=== PATIENT | male | born 1970 | race Caucasian/White ===

== ENCOUNTER 2022-08-13 15:00 | Observation (INO) ==
[2022-08-13] MEDS ORDERED: NS 1,000 ML IV 1,000 ML with MVI INJ (ADULT) 10 ML IV ONE ×2 (16:00)
[2022-08-13] MEDS ORDERED: ZOFRAN INJ 4 MG VIAL IVP PRN (16:00)
[2022-08-13 16:22] LABS: BASOPHILS # (AUTO) 0.1 X10^3/uL (0.0-0.1); BASOPHILS % (AUTO) 0.8 % (0.2-1.0); EOSINOPHILS # (AUTO) 0.1 x10^3/uL (0.0-0.2); EOSINOPHILS % (AUTO) 1.3 % (0.9-2.9); HEMATOCRIT 54.9 % (42.0-54.0); HEMOGLOBIN 18.9 g/dL (13.5-18.0); LYMPHOCYTES # (AUTO) 1.3 X10^3/uL (1.3-2.9); LYMPHOCYTES % (AUTO) 14.8 % (21.0-51.0); MEAN CORPUSCULAR HEMOGLOBIN 31.4 pg (27.0-34.0); MEAN CORPUSCULAR HGB CONC 34.5 g/dL (33.0-35.0); MEAN CORPUSCULAR VOLUME 91.1 fL (80.0-100.0); MEAN PLATELET VOLUME 11.3 fL (7.4-11.0); MONOCYTES % (AUTO) 11.7 % (0.0-13.0); NEUTROPHILS # (AUTO) 6.4 x10^3/uL (2.2-4.8); NEUTROPHILS % (AUTO) 71.4 % (42.0-75.0); PLATELET COUNT 164 X10^3/uL (150.0-450.0); RED BLOOD COUNT 6.02 X10^6/uL (4.7-6.0); RED CELL DISTRIBUTION WIDTH 13.3 % (11.6-16.5); WHITE BLOOD COUNT 8.9 X10^3/uL (3.6-10.0)
[2022-08-13 16:33] LABS: ALANINE AMINOTRANSFERASE 34 Units/L (12-78); ALKALINE PHOSPHATASE 73 Units/L (46-116); AMYLASE 47 Units/L (25-115); ASPARTATE AMINO TRANSFERASE 13 Units/L (15-37); BLOOD UREA NITROGEN 20 mg/dL (7-18); CALCIUM 9.2 mg/dL (8.5-10.1); CARBON DIOXIDE 31.3 mmol/L (21-32); CHLORIDE 93 mmol/L (98-107); CREATININE 1.15 mg/dL (0.70-1.30); GLUCOSE 99 mg/dL (65-99); LIPASE 186 Units/L (73-393); POTASSIUM 3.8 mmol/L (3.5-5.1); SODIUM 135 mmol/L (136-145); TOTAL PROTEIN 7.9 g/dL (6.4-8.2); eGFR NON BLACK RACES > 60 (>60)
[2022-08-13 18:14] VITALS: BMI 27.3
[2022-08-13] MEDS: NS 1,000 ML IV 1,000 ML IV SCH (18:25)
[2022-08-13 18:30] LABS: BILIRUBIN,URINE NEGATIVE (NEGATIVE); BLOOD/HEMOGLOBIN,URINE 3+ (NEGATIVE); GLUCOSE, URINE NEGATIVE (NEGATIVE); KETONES,URINE 2+ (NEGATIVE); LEUKOCYTE ESTERASE ,URINE NEGATIVE (NEGATIVE); NITRITES,URINE NEGATIVE (NEGATIVE); PROTEIN,URINE 2+ (NEGATIVE); UROBILINOGEN,URINE NORMAL (NORMAL)
[2022-08-13 18:53] LABS: APPEARANCE,URINE CLEAR (CLEAR); BACTERIA,URINE TRACE /HPF (NEGATIVE); COLOR,URINE DARK YELLOW (YELLOW); SQUAMOUS EPITHELIAL CELL,UR FEW /HPF (NEGATIVE)
[2022-08-13] MEDS ORDERED: LEVSIN/MAALOX/LIDOC VISC PO PRN (19:48)
[2022-08-13] MEDS: PEPCID 20 MG VIAL IVP SCH (20:42)
[2022-08-13] MEDS: PROTONIX INJ 40 MG VIAL IVP SCH (20:42)
--- NOTE | 2022-08-14 00:46 | RAD ---
HISTORYABDOMINAL PAINSTUDYKUBCOMPARISONNoneTECH NIQUEAP supine projection, 1 imageFINDINGSMultiple moderately distended small bowel loops throughout the majority of the abdomen.No gross free air.No abnormal calcifications.No acute osseous abnormality.IMPRESSIONMultiple moderately distended small bowel loops throughout the majority of the abdomen. Findings are highly concerning for a mechanical small bowel obstruction.Electronically signed by: Kemar Abarca (August 14, 2022 00:45:18)
[2022-08-14] MEDS: NS 1,000 ML IV 1,000 ML IV SCH ×2 (04:48→19:55)
[2022-08-14 06:08] LABS: BASOPHILS # (AUTO) 0.1 X10^3/uL (0.0-0.1); BASOPHILS % (AUTO) 1.4 % (0.2-1.0); EOSINOPHILS # (AUTO) 0.1 x10^3/uL (0.0-0.2); EOSINOPHILS % (AUTO) 2.2 % (0.9-2.9); HEMATOCRIT 50.5 % (42.0-54.0); HEMOGLOBIN 17.4 g/dL (13.5-18.0); LYMPHOCYTES # (AUTO) 1.4 X10^3/uL (1.3-2.9); MEAN CORPUSCULAR HEMOGLOBIN 31.3 pg (27.0-34.0); MEAN CORPUSCULAR HGB CONC 34.4 g/dL (33.0-35.0); MEAN CORPUSCULAR VOLUME 90.8 fL (80.0-100.0); MEAN PLATELET VOLUME 11.2 fL (7.4-11.0); MONOCYTES # (AUTO) 0.8 x10^3/uL (0.3-0.8); MONOCYTES % (AUTO) 11.8 % (0.0-13.0); NEUTROPHILS # (AUTO) 4.2 x10^3/uL (2.2-4.8); NEUTROPHILS % (AUTO) 63.6 % (42.0-75.0); PLATELET COUNT 153 X10^3/uL (150.0-450.0); RED BLOOD COUNT 5.56 X10^6/uL (4.7-6.0); RED CELL DISTRIBUTION WIDTH 13.1 % (11.6-16.5); WHITE BLOOD COUNT 6.6 X10^3/uL (3.6-10.0)
[2022-08-14 06:13] LABS: ALANINE AMINOTRANSFERASE 27 Units/L (12-78); ALBUMIN 3.4 g/dL (3.4-5.0); ALKALINE PHOSPHATASE 66 Units/L (46-116); ASPARTATE AMINO TRANSFERASE 11 Units/L (15-37); BLOOD UREA NITROGEN 17 mg/dL (7-18); CALCIUM 8.3 mg/dL (8.5-10.1); CARBON DIOXIDE 31.3 mmol/L (21-32); CHLORIDE 96 mmol/L (98-107); GLUCOSE 93 mg/dL (65-99); SODIUM 135 mmol/L (136-145); TOTAL PROTEIN 6.8 g/dL (6.4-8.2); eGFR NON BLACK RACES > 60 (>60)
[2022-08-14] MEDS ORDERED: NS 50 ML IV 50 ML IV ONE (09:21)
[2022-08-14] MEDS: PROTONIX INJ 40 MG VIAL IVP SCH ×2 (09:30→21:09)
[2022-08-14] MEDS: PEPCID 20 MG VIAL 20 MG in NS 50 ML IV 50 ML IV SCH ×2 (09:31→21:10)
[2022-08-14] MEDS ORDERED: FORTAZ or TAZICEF VIAL INJ 1 G in NS 100 ML IV + SPIKE MINIBAG* 100 ML IV SCH (10:00)
[2022-08-14] MEDS: FORTAZ or TAZICEF VIAL INJ 1 G in NS 100 ML IV 100 ML IV SCH ×3 (10:20→21:09)
[2022-08-14] MEDS: LEVAQUIN PREMIX IV 750 MG 750 MG/150 ML BAG IV SCH (12:13)
--- NOTE | 2022-08-14 14:41 | CT ---
HISTORYABD PAIN, NAUSEA VOMITINGSTUDYABDOMEN/PELVIS WITH CONCOMPARISONKUB dated 08/13/2022.TECHNIQUEMultiple axial images of the abdomen and pelvis were obtained from the lung bases to the pubic symphysis after the administration of IV contrast. Dose reduction techniques including Automated Exposure Control (AEC) and adjustment of mA and kV were utilized.FINDINGSIncluded portions of the lung bases are clear. There is a 5 mm hypodensity in the right hepatic lobe, possibly a cyst. No enhancing intrahepatic mass lesion or biliary ductal dilatation is evident. The gallbladder, pancreas, spleen, adrenal glands and kidneys are unremarkable in their CT appearance. The urinary bladder is well distended and grossly unremarkable. The prostate is normal in size. The appendix is normal. The colon is nondistended and not optimally evaluated. There are a couple of uncomplicated colonic diverticuli noted. There are multiple dilated loops of small bowel throughout the abdomen with both proximal and distal small bowel loops appearing more normal in caliber. There is no bowel wall thickening or pneumatosis evident. There is no significant mesenteric stranding or lymphadenopathy. There is no intraperitoneal free air or free fluid. The abdominal aorta is non aneurysmal. The bony structures are grossly intact. There is degenerative disc disease at L5-S1.IMPRESSIONMultiple dilated loops of small bowel concerning for possible small bowel obstruction. There is no pneumatosis or CT evidence of bowel ischemia at this time. Correlation with lactic acid levels and close clinical follow-up is recommended to exclude bowel ischemia. Follow-up KUB may be of benefit in evaluating for passage of contrast into the colon.Electronically signed by: BIBIANA SWAIN (August 14, 2022 14:40:08)
--- NOTE | 2022-08-14 17:40 | DR.UPDATE ---
H&P Update Prescription drug monitoring program results: PDMP reviewed and no concerns identified H&P Reviewed: Yes Any changes to H&P?: Yes Changes noted:: WAS ADMITTED TO THE HOSPITAL OBSERVATION STATUS FOR FURTHER EVALUATION AND TREATMENT OF ABDOMINAL PAIN, NAUSEA AND VOMITING, AND DEHYDRATION. HE DESCRIBES ABDOMINAL PAIN DIFFUSE, CRAMPING, AND RATES PAIN A 7/10. ON ADMISSION TO THE HOSPITAL, HIS VITALS WERE: 97.9-78-20-98%-141/84. LABS WERE OBTAINED. WBC 8.9, RBC 6.02, HGB 18.9, HCT 54.9, PLT COUNT 164, SODIUM 135, POTASSIUM 3.8, CHLORIDE 93, BUN 20, CREATININE 1.15, GLUCOSE 99, CALCIUM 9.2, TOTAL BILI 0.90, AST 13, ALT 34, ALK PHOS 73, TOTAL PROTEIN 7.9, ALBUMIN 4.0, AMYLASE 47, ALBUMIN 186. A URINALYSIS WAS OBTAINED AND REVEALED: WBC 0-2, RBC 10-20, BACTERIA TRACE, LEUKOCYTES NEGATIVE, BLOOD 3+. A URINE CULTURE WAS SET UP. A KUB WAS OBTAINED AND REVEALED: Multiple moderately distended small bowel loops throughout the majority of the abdomen. Findings are highly concerning for a mechanical small bowel obstruction. HE WAS STARTED ON NORMAL SALINE AT 125 ML/HR, PEPCID 20MG IV Q12H, PROTONIX 40MG IV Q12H, ZOFRAN 4MG IV Q4H PRN, ZOFRAN 4MG IV Q4H PRN, AND TORADOL 30MG IV Q8H. WE WILL HOLD HIM NPO AND OBTAIN AN ABDOMEN/PELVIS CT WITH CONTRAST IN THE MORNING. WE WILL ALSO REPEAT LABS IN THE [facility]. TIME SPENT ON CLINICAL ASSESSMENT, REVIEWING LABS AND IMAGING, DECISION MAKING, AND DOCUMENTATION GREATER THAN 75 MINUTES. Patient was examined?: Yes
[2022-08-14] MEDS: PEPCID 20 MG VIAL IVP SCH (19:14)
[2022-08-14] MEDS: TORADOL 30 MG VIAL IVP SCH (21:10)
[2022-08-15] MEDS: NS 1,000 ML IV 1,000 ML IV SCH ×4 (02:00→18:52)
[2022-08-15] MEDS: TORADOL 30 MG VIAL IVP SCH ×3 (02:02→17:54)
[2022-08-15] MEDS ORDERED: TORADOL 30 MG VIAL IVP PRN (03:55)
[2022-08-15] MEDS: FORTAZ or TAZICEF VIAL INJ 1 G in NS 100 ML IV 100 ML IV SCH (05:47)
[2022-08-15 06:05] LABS: BASOPHILS % (AUTO) 0.3 % (0.2-1.0); EOSINOPHILS % (AUTO) 0.8 % (0.9-2.9); HEMATOCRIT 47.3 % (42.0-54.0); HEMOGLOBIN 16.5 g/dL (13.5-18.0); LYMPHOCYTES # (AUTO) 0.7 X10^3/uL (1.3-2.9); LYMPHOCYTES % (AUTO) 14.6 % (21.0-51.0); MEAN CORPUSCULAR HEMOGLOBIN 31.6 pg (27.0-34.0); MEAN CORPUSCULAR HGB CONC 34.8 g/dL (33.0-35.0); MEAN CORPUSCULAR VOLUME 90.7 fL (80.0-100.0); MEAN PLATELET VOLUME 10.7 fL (7.4-11.0); MONOCYTES # (AUTO) 0.7 x10^3/uL (0.3-0.8); MONOCYTES % (AUTO) 14.8 % (0.0-13.0); NEUTROPHILS # (AUTO) 3.4 x10^3/uL (2.2-4.8); NEUTROPHILS % (AUTO) 69.5 % (42.0-75.0); PLATELET COUNT 125 X10^3/uL (150.0-450.0); RED BLOOD COUNT 5.21 X10^6/uL (4.7-6.0); RED CELL DISTRIBUTION WIDTH 12.6 % (11.6-16.5); WHITE BLOOD COUNT 4.9 X10^3/uL (3.6-10.0)
[2022-08-15 06:18] LABS: ALANINE AMINOTRANSFERASE 21 Units/L (12-78); ALBUMIN 3.1 g/dL (3.4-5.0); ALKALINE PHOSPHATASE 69 Units/L (46-116); ASPARTATE AMINO TRANSFERASE 11 Units/L (15-37); BLOOD UREA NITROGEN 19 mg/dL (7-18); CALCIUM 7.9 mg/dL (8.5-10.1); CARBON DIOXIDE 25.6 mmol/L (21-32); CHLORIDE 98 mmol/L (98-107); COR CA(FOR HYPOALB) 8.6 mg/dL (8.5-10.1); CREATININE 1.06 mg/dL (0.70-1.30); GLUCOSE 86 mg/dL (65-99); POTASSIUM 3.5 mmol/L (3.5-5.1); SODIUM 133 mmol/L (136-145); TOTAL PROTEIN 6.4 g/dL (6.4-8.2); eGFR NON BLACK RACES > 60 (>60)
--- NOTE | 2022-08-15 07:45 | RAD ---
HISTORYAbdominal pain, small-bowel obstructionSTUDYKUBCOMPARISONCT abdomen pelvis 08/14/2022, KUB 08/13/2022FINDINGSThere are multiple dilated loops of small bowel in the mid abdomen but with gas and contrast distally within the colon. The presence of contrast within the colon precludes complete small bowel obstruction. Partial small bowel obstruction is likely present when compared the prior examination there does appear to have been interval development of some mild small bowel wall edema in the dilated loops. Findings could indicate early vascular congestion or developing ischemia. Clinical correlation is recommended. No visible pneumatosis is identified. No abnormal masses or abnormal calcifications are identified. Regional skeleton is intact.IMPRESSIONFindings consistent with partial small bowel obstruction but with interval development since the prior examination of mild bowel wall edema which could indicate vascular congestion, inflammation, or early ischemia. Clinical correlation is recommended. Follow-up CT could be obtained if clinically indicated.Electronically signed by: SAM MORALES (August 15, 2022 07:44:16)
[2022-08-15] MEDS: LEVAQUIN PREMIX IV 750 MG 750 MG/150 ML BAG IV SCH (08:26)
[2022-08-15] MEDS: PROTONIX INJ 40 MG VIAL IVP SCH ×2 (08:27→20:38)
[2022-08-15] MEDS: PEPCID 20 MG VIAL 20 MG in NS 50 ML IV 50 ML IV SCH ×2 (08:27→20:40)
[2022-08-15] MEDS ORDERED: TORADOL 30 MG VIAL ONE (09:16)
[2022-08-15] MEDS ORDERED: FLAGYL IV PREMIX 500 MG BAG 500 MG/100 ML BAG IV SCH (10:00)
[2022-08-15] MEDS: FLAGYL IV PREMIX 500 MG BAG 500 MG/100 ML BAG IV SCH ×3 (12:52→21:34)
--- NOTE | 2022-08-15 14:41 | PCM.PROG ---
Progress Note - Progress Note for Day of Date of Exam: 08/14/22 - Subjective Subjective: IS CURRENTLY OBSERVATION STATUS FOR TREATMENT OF ABDOMINAL PAIN, NAUSEA AND VOMITING, AND DEHYDRATION. HE HAS A PAST MEDICAL HISTORY OF HYPERLIPIDEMIA, HYPERTENSION, TESTICULAR DYSFUNCTION, CHRONIC LOW BACK PAIN, AND BILATERAL KNEE PAIN. TODAY, HE IS ALERT AND ORIENTED, SITTING UP IN BED ON MORNING ROUNDS. HIS SPOUSE IS AT BEDSIDE. PATIENT CONTINUES TO COMPLAIN OF DIFFUSE ABDOMINAL PAIN AND NAUSEA. HE DENIES SIGNIFICANT IMPROVEMENT IN PAIN SINCE ADMISSION. ON EXAMINATION, HEART IS REGULAR IN RATE AND RHYTHM. BILATERAL LUNG SOUNDS ARE CLEAR THROUGHOUT. ABDOMEN IS ROUND, SOFT, AND NOTED WITH DIFFUSE TENDERNESS TO PALPATION. HYPOACTIVE BOWEL SOUNDS NOTED IN ALL QUADRANTS. GOOD MOVEMENT NOTED TO UPPER AND LOWER EXTREMITIES WITH NO EDEMA NOTED. HIS VITALS THIS MORNING ARE: 97.6-73-20-98%-129/76. LABS WERE OBTAINED. WBC 6.6, RBC 5.56, HGB 17.4, HCT 50.5, PLT COUNT 153, SODIUM 135, POTASSIUM 4.0, BUN 17, CREATININE 1.20, GLUCOSE 93, CALCIUM 8.3, AST 11, ALT 27, ALK PHOS 66, TOTAL PROTEIN 6.8, ALBUMIN 3.4. A URINE CULTURE IS PENDING. WE OBTAINED AN ABDOMEN/PELVIS CT WITH CONTRAST THIS MORNING. IT REVEALED: Multiple dilated loops of small bowel concerning for possible small bowel obstruction. There is no pneumatosis or CT evidence of bowel ischemia at this time. Correlation with lactic acid levels and close clinical follow-up is recommended to exclude bowel ischemia. HE IS CURRENTLY RECEIVING NORMAL SALINE AT 125 ML/HR, PEPCID 20MG IV Q12H, PROTONIX 40MG IV Q12H, ZOFRAN 4MG IV Q4H PRN, ZOFRAN 4MG IV Q4H PRN, AND TORADOL 30MG IV Q8H. TODAY, WE WILL ADD FORTAZ 1G IV Q8H, LEVAQUIN 750MG IV DAILY, AND TORADOL 30MG IV Q8H FOR PAIN AND INFLAMMATION. WE WILL CONSULT DR VELAZCO, GENERAL SURGEON. WE WILL HOLD HIM NPO FOR NOW. OTHERWISE, WE WILL FOLLOW-UP WITH AM LABS AND KUB AND CONTINUE TO MONITOR. TIME SPENT ON CLINICAL ASSESSMENT, REVIEWING LABS AND IMAGING, DECISION MAKING, AND DOCUMENTATION GREATER THAN 45 MINUTES. - Past Medical Family Social History Past Med/Fam/Surg Hx: No changes since H&P Allergies: Allergies No Known Allergies Allergy (Verified 08/13/22 16:19) - Review of Systems ROS: No change since H&P - Vital Signs and I&O's Vital Signs: Temperature 98.4 F Temperature 97.9 F Pulse Rate [Right Brachial] 81 Pulse Rate [Left] 78 Pulse Rate [Left] 78 Respiratory Rate 20 Respiratory Rate 20 Blood Pressure [Right Arm] 144/69 Blood Pressure [Left Arm] 132/72 Blood Pressure [Left Arm] 141/84 O2 Sat by Pulse Oximetry 97 O2 Sat by Pulse Oximetry 98 Intake and Output: Intake & Output 08/12/22 08/13/22 08/14/22 08/15/22 11:59 11:59 11:59 11:59 Intake Total 185 / 1853 1413 / 1413 Balance [id number] 1413 / 1413 - Physical Exam Oriented: Normal Eyes: Normal Ear: Normal Nose: Normal Throat: Normal Respiratory: Normal Cardiovascular: Normal : Normal Auscultation: Bowel Sounds: Decreased Palpation: Normal Tenderness: Diffuse, Mild Skin: Normal Musculoskeletal: Normal Psychiatric: Normal Mood Description: Calm Affect: Normal Speech Pattern: Clear, Appropriate - Laboratory and Diagnostics Result Diagrams: 08/15/22 05:25 08/15/22 05:25 Labs: 08/13/22 18:10 Urine,Clean Catch Urine Culture - Preliminary Laboratory WBC 6.6 X10^3/uL (3.6-10.0) 08/14/22 05:30 RBC 5.56 X10^6/uL (4.7-6.0) 08/14/22 05:30 Hgb 17.4 g/dL (13.5-18.0) 08/14/22 05:30 Hct 50.5 % (42.0-54.0) 08/14/22 05:30 MCV 90.8 fL (80.0-100.0) 08/14/22 05:30 MCH 31.3 pg (27.0-34.0) 08/14/22 05:30 MCHC 34.4 g/dL (33.0-35.0) 08/14/22 05:30 RDW 13.1 % (11.6-16.5) 08/14/22 05:30 Plt Count 153 X10^3/uL (150.0-450.0) 08/14/22 05:30 MPV 11.2 fL (7.4-11.0) H 08/14/22 05:30 Neut % (Auto) 63.6 % (42.0-75.0) 08/14/22 05:30 Lymph % (Auto) 21.0 % (21.0-51.0) 08/14/22 05:30 [place] % (Auto) 11.8 % (0.0-13.0) 08/14/22 05:30 Eos % (Auto) 2.2 % (0.9-2.9) 08/14/22 05:30 Baso % (Auto) 1.4 % (0.2-1.0) H 08/14/22 05:30 Neut # (Auto) 4.2 x10^3/uL (2.2-4.8) 08/14/22 05:30 Lymph # (Auto) 1.4 X10^3/uL (1.3-2.9) 08/14/22 05:30 [place] # (Auto) 0.8 x10^3/uL (0.3-0.8) 08/14/22 05:30 Eos # (Auto) 0.1 x10^3/uL (0.0-0.2) 08/14/22 05:30 Baso # (Auto) 0.1 X10^3/uL (0.0-0.1) 08/14/22 05:30 Absolute Nucleated RBC 0.0 /100WBC 08/14/22 05:30 Sodium 135 mmol/L (136-145) L 08/14/22 05:30 Corrected Sodium TNP 08/14/22 05:30 Potassium 4.0 mmol/L (3.5-5.1) 08/14/22 05:30 Chloride 96 mmol/L (98-107) L 08/14/22 05:30 Carbon Dioxide 31.3 mmol/L (21-32) 08/14/22 05:30 BUN 17 mg/dL (7-18) 08/14/22 05:30 Creatinine 1.20 mg/dL (0.70-1.30) 08/14/22 05:30 Est GFR (MDRD) Af Amer > 60 (>60) 08/14/22 05:30 Est GFR (MDRD) Non-Af > 60 (>60) 08/14/22 05:30 Glucose 93 mg/dL (65-99) 08/14/22 05:30 Calcium 8.3 mg/dL (8.5-10.1) L 08/14/22 05:30 Corrected Calcium TNP 08/14/22 05:30 Total Bilirubin 0.90 mg/dL (0.2-1.0) 08/14/22 05:30 AST 11 Units/L (15-37) L 08/14/22 05:30 ALT 27 Units/L (12-78) 08/14/22 05:30 Alkaline Phosphatase 66 Units/L (46-116) 08/14/22 05:30 Total Protein 6.8 g/dL (6.4-8.2) 08/14/22 05:30 Albumin 3.4 g/dL (3.4-5.0) 08/14/22 05:30 Globulin 3.4 g/dL (2.5-4.5) 08/14/22 05:30 Albumin/Globulin Ratio 1.0 Ratio (1.1-2.1) L 08/14/22 05:30 Amylase 47 Units/L (25-115) 08/13/22 16:12 Lipase 186 Units/L (73-393) 08/13/22 16:12 Specimen Type Clean catch urine 08/13/22 18:10 Urine Color Dark yellow (YELLOW) 08/13/22 18:10 Urine Appearance Clear (CLEAR) 08/13/22 18:10 Urine pH 6.0 (5.0 - 8.0) 08/13/22 18:10 Ur Specific [place] 1.020 (1.000-1.030) 08/13/22 18:10 Urine Protein 2+ (NEGATIVE) 08/13/22 18:10 Urine Glucose (UA) Negative (NEGATIVE) 08/13/22 18:10 Urine Ketones 2+ (NEGATIVE) 08/13/22 18:10 Urine Blood 3+ (NEGATIVE) 08/13/22 18:10 Urine Nitrite Negative (NEGATIVE) 08/13/22 18:10 Urine Bilirubin Negative (NEGATIVE) 08/13/22 18:10 Urine Urobilinogen Normal (NORMAL) 08/13/22 18:10 Ur Leukocyte Esterase Negative (NEGATIVE) 08/13/22 18:10 Urine RBC 10-20 /HPF (0-3) A 08/13/22 18:10 Urine WBC 0-2 /HPF (0-5) 08/13/22 18:10 Ur Squamous Epith Cells Few /HPF (NEGATIVE) 08/13/22 18:10 Urine Bacteria Trace /HPF (NEGATIVE) 08/13/22 18:10 Urine Mucus Moderate /HPF (NEGATIVE) 08/13/22 18:10 Ur Culture Indicated? Yes/culture set up 08/13/22 18:10 - Plan (1) Small bowel obstruction Status: Acute Plan: NPO, NORMAL SALINE AT 125 ML/HR, FORTAZ 1G IV Q8H, LEVAQUIN 750MG IV DAILY, PEPCID 20MG IV Q12H, PROTONIX 40MG IV Q12H, ZOFRAN 4MG IV Q4H PRN, ZOFRAN 4MG IV Q4H PRN, AND TORADOL 30MG IV Q8H. CONSULT GENERAL SURGERY (2) Abdominal pain Status: Acute Qualifiers: Abdominal location: generalized Qualified Code(s): R10.84 - Generalized abdominal pain (3) Nausea and vomiting Status: Acute Qualifiers: Vomiting type: unspecified Qualified Code(s): R11.2 - Nausea with vomiting, unspecified (4) HTN (hypertension) Status: Chronic Qualifiers: Hypertension type: primary hypertension Qualified Code(s): I10 - Essential (primary) hypertension Plan: CONTINUE TO MONITOR (5) Hyperlipemia Status: Chronic Qualifiers: Hyperlipidemia type: mixed hyperlipidemia Qualified Code(s): E78.2 - Mixed hyperlipidemia Plan: CONTINUE TO MONITOR
--- NOTE | 2022-08-15 14:51 | PCM.PROG ---
Progress Note - Progress Note for Day of Date of Exam: 08/15/22 - Subjective Subjective: IS CURRENTLY OBSERVATION STATUS FOR TREATMENT OF SMALL BOWEL OBSTRUCTION, ABDOMINAL PAIN, NAUSEA AND VOMITING, AND DEHYDRATION. HE HAS A PAST MEDICAL HISTORY OF HYPERLIPIDEMIA, HYPERTENSION, TESTICULAR DYSFUNCTION, CHRONIC LOW BACK PAIN, AND BILATERAL KNEE PAIN. TODAY, HE IS ALERT AND ORIENTED, SITTING UP IN BED ON MORNING ROUNDS. HIS SPOUSE IS AT BEDSIDE. PATIENT CONTINUES TO COMPLAIN OF DIFFUSE ABDOMINAL PAIN AND NAUSEA. HE REPORTS SLIGHT IMPROVEMENT IN PAIN SINCE ADMISSION. ON EXAMINATION, HEART IS REGULAR IN RATE AND RHYTHM. BILATERAL LUNG SOUNDS ARE CLEAR THROUGHOUT. ABDOMEN IS ROUND, SOFT, AND NOTED WITH DIFFUSE TENDERNESS TO PALPATION. HYPOACTIVE BOWEL SOUNDS NOTED IN ALL QUADRANTS. GOOD MOVEMENT NOTED TO UPPER AND LOWER EXTREMITIES WITH NO EDEMA NOTED. HIS VITALS THIS MORNING ARE: 99.0-80-20-97%-133/71. LABS WERE OBTAINED. WBC WBC 4.9, RBC 5.21, HGB 16.5, HCT 47.3, SODIUM 133, POTASSIUM 3.5, CHLORIDE 98, BUN 19, CREATININE 1.06, GLUCOSE 86, CALCIUM 7.9, AST 11, ALT 21, ALK PHOS 69, TOTAL PROTEIN 6.4, ALBUMIN 3.1. A URINE CULTURE IS PENDING. WE OBTAINED AN A BDOMEN/PELVIS CT WITH CONTRAST THIS MORNING. WE REPEATED A KUB THIS MORNING. IT REVEALED: Findings consistent with partial small bowel obstruction but with interval development since the prior examination of mild bowel wall edema which could indicate vascular congestion, inflammation, or early ischemia. HE IS CURRENTLY RECEIVING NORMAL SALINE AT 125 ML/HR, PEPCID 20MG IV Q12H, PROTONIX 40MG IV Q12H, ZOFRAN 4MG IV Q4H PRN, ZOFRAN 4MG IV Q4H PRN, AND TORADOL 30MG IV Q8H. WE HAVE CONSULTED , GENERAL SURGEON. HE WILL SEE HIM THIS MORNING. WE WILL HOLD HIM NPO FOR NOW. OTHERWISE, WE WILL FOLLOW-UP WITH AM LABS AND KUB AND CONTINUE TO MONITOR. TIME SPENT ON CLINICAL ASSESSMENT, REVIEWING LABS AND IMAGING, DECISION MAKING, AND DOCUMENTATION GREATER THAN 45 MINUTES. - Past Medical Family Social History Past Med/Fam/Surg Hx: No changes since H&P Allergies: Allergies No Known Drug Allergies Allergy (Unknown, Verified 08/14/22 21:59) latex Adverse Reaction (Mild, Verified 08/14/22 21:58) RASH - Review of Systems ROS: No change since H&P - Vital Signs and I&O's Vital Signs: Temperature 99.0 F Temperature 97.9 F Pulse Rate [Right Brachial] 80 Pulse Rate [Left] 78 Pulse Rate [Left] 78 Respiratory Rate 16 Respiratory Rate 20 Blood Pressure [Right Arm] 133/71 Blood Pressure [Left Arm] 132/72 Blood Pressure [Left Arm] 141/84 O2 Sat by Pulse Oximetry 97 O2 Sat by Pulse Oximetry 98 Intake and Output: Intake & Output 08/13/22 08/14/22 08/15/22 08/16/22 11:59 11:59 11:59 11:59 Intake Total 1854 / 1854 2980 / 2980 Balance 185 / 4 2980 / 2980 - Physical Exam Oriented: Normal Eyes: Normal Ear: Normal Nose: Normal Throat: Normal Respiratory: Normal Cardiovascular: Normal : Normal Auscultation: Bowel Sounds: Decreased Tenderness: Diffuse, Mild Skin: Normal Musculoskeletal: Normal Psychiatric: Normal Mood Description: Calm Affect: Normal Speech Pattern: Clear, Appropriate - Laboratory and Diagnostics Result Diagrams: 08/15/22 05:25 08/15/22 05:25 Labs: 08/13/22 18:10 Urine,Clean Catch Urine Culture - Final Laboratory WBC 4.9 X10^3/uL (3.6-10.0) 08/15/22 05:25 RBC 5.21 X10^6/uL (4.7-6.0) 08/15/22 05:25 Hgb 16.5 g/dL (13.5-18.0) 08/15/22 05:25 Hct 47.3 % (42.0-54.0) 08/15/22 05:25 MCV 90.7 fL (80.0-100.0) 08/15/22 05:25 MCH 31.6 pg (27.0-34.0) 08/15/22 05:25 MCHC 34.8 g/dL (33.0-35.0) 08/15/22 05:25 RDW 12.6 % (11.6-16.5) 08/15/22 05:25 Plt Count 125 X10^3/uL (150.0-450.0) L 08/15/22 05:25 MPV 10.7 fL (7.4-11.0) 08/15/22 05:25 Neut % (Auto) 69.5 % (42.0-75.0) 08/15/22 05:25 Lymph % (Auto) 14.6 % (21.0-51.0) L 08/15/22 05:25 [place] % (Auto) 14.8 % (0.0-13.0) H 08/15/22 05:25 Eos % (Auto) 0.8 % (0.9-2.9) L 08/15/22 05:25 Baso % (Auto) 0.3 % (0.2-1.0) 08/15/22 05:25 Neut # (Auto) 3.4 x10^3/uL (2.2-4.8) 08/15/22 05:25 Lymph # (Auto) 0.7 X10^3/uL (1.3-2.9) L 08/15/22 05:25 [place] # (Auto) 0.7 x10^3/uL (0.3-0.8) 08/15/22 05:25 Eos # (Auto) 0.0 x10^3/uL (0.0-0.2) 08/15/22 05:25 Baso # (Auto) 0.0 X10^3/uL (0.0-0.1) 08/15/22 05:25 Absolute Nucleated RBC 0.1 /100WBC 08/15/22 05:25 Sodium 133 mmol/L (136-145) L 08/15/22 05:25 Corrected Sodium TNP 08/15/22 05:25 Potassium 3.5 mmol/L (3.5-5.1) 08/15/22 05:25 Chloride 98 mmol/L (98-107) 08/15/22 05:25 Carbon Dioxide 25.6 mmol/L (21-32) 08/15/22 05:25 BUN 19 mg/dL (7-18) H 08/15/22 05:25 Creatinine 1.06 mg/dL (0.70-1.30) 08/15/22 05:25 Est GFR (MDRD) Af Amer > 60 (>60) 08/15/22 05:25 Est GFR (MDRD) Non-Af > 60 (>60) 08/15/22 05:25 Glucose 86 mg/dL (65-99) 08/15/22 05:25 Lactic Acid 1.1 mmol/L (0.4-2.0) 08/15/22 09:20 Calcium 7.9 mg/dL (8.5-10.1) L 08/15/22 05:25 Corrected Calcium 8.6 mg/dL (8.5-10.1) 08/15/22 05:25 Total Bilirubin 0.80 mg/dL (0.2-1.0) 08/15/22 05:25 AST 11 Units/L (15-37) L 08/15/22 05:25 ALT 21 Units/L (12-78) 08/15/22 05:25 Alkaline Phosphatase 69 Units/L (46-116) 08/15/22 05:25 Total Protein 6.4 g/dL (6.4-8.2) 08/15/22 05:25 Albumin 3.1 g/dL (3.4-5.0) L 08/15/22 05:25 Globulin 3.3 g/dL (2.5-4.5) 08/15/22 05:25 Albumin/Globulin Ratio 0.9 Ratio (1.1-2.1) L 08/15/22 05:25 Amylase 47 Units/L (25-115) 08/13/22 16:12 Lipase 186 Units/L (73-393) 08/13/22 16:12 Specimen Type Clean catch urine 08/13/22 18:10 Urine Color Dark yellow (YELLOW) 08/13/22 18:10 Urine Appearance Clear (CLEAR) 08/13/22 18:10 Urine pH 6.0 (5.0 - 8.0) 08/13/22 18:10 Ur Specific [place] 1.020 (1.000-1.030) 08/13/22 18:10 Urine Protein 2+ (NEGATIVE) 08/13/22 18:10 Urine Glucose (UA) Negative (NEGATIVE) 08/13/22 18:10 Urine Ketones 2+ (NEGATIVE) 08/13/22 18:10 Urine Blood 3+ (NEGATIVE) 08/13/22 18:10 Urine Nitrite Negative (NEGATIVE) 08/13/22 18:10 Urine Bilirubin Negative (NEGATIVE) 08/13/22 18:10 Urine Urobilinogen Normal (NORMAL) 08/13/22 18:10 Ur Leukocyte Esterase Negative (NEGATIVE) 08/13/22 18:10 Urine RBC 10-20 /HPF (0-3) A 08/13/22 18:10 Urine WBC 0-2 /HPF (0-5) 08/13/22 18:10 Ur Squamous Epith Cells Few /HPF (NEGATIVE) 08/13/22 18:10 Urine Bacteria Trace /HPF (NEGATIVE) 08/13/22 18:10 Urine Mucus Moderate /HPF (NEGATIVE) 08/13/22 18:10 Ur Culture Indicated? Yes/culture set up 08/13/22 18:10 Stl C. diff Tox B Gene Negative (NEGATIVE) 08/15/22 13:00 Stl C. diff [id number] Presumptive negative (NEGATIVE) 08/15/22 13:00 - Plan (1) Small bowel obstruction Status: Acute Plan: NPO, NORMAL SALINE AT 125 ML/HR, FORTAZ 1G IV Q8H, LEVAQUIN 750MG IV DAILY, PEPCID 20MG IV Q12H, PROTONIX 40MG IV Q12H, ZOFRAN 4MG IV Q4H PRN, ZOFRAN 4MG IV Q4H PRN, AND TORADOL 30MG IV Q8H. CONSULT GENERAL SURGERY (2) Abdominal pain Status: Acute Qualifiers: Abdominal location: generalized Qualified Code(s): R10.84 - Generalized abdominal pain (3) Nausea and vomiting Status: Acute Qualifiers: Vomiting type: unspecified Qualified Code(s): R11.2 - Nausea with vomiting, unspecified (4) HTN (hypertension) Status: Chronic Qualifiers: Hypertension type: primary hypertension Qualified Code(s): I10 - Essential (primary) hypertension Plan: CONTINUE TO MONITOR (5) Hyperlipemia Status: Chronic Qualifiers: Hyperlipidemia type: mixed hyperlipidemia Qualified Code(s): E78.2 - Mixed hyperlipidemia Plan: CONTINUE TO MONITOR
[2022-08-15] MEDS ORDERED: MICRO K EXTEN CAP 10 MEQ PO PRN (20:57)
[2022-08-15] MEDS ORDERED: K-DUR TAB 20 MEQ PO PRN (20:57)
[2022-08-15] MEDS ORDERED: KLOR-CON PO PRN (20:57)
[2022-08-15] MEDS ORDERED: POTASSIUM CHLORIDE LIQ 20 MEQ UDC PO PRN (20:57)
[2022-08-15] MEDS ORDERED: MAGNESIUM SULFATE 1 GRAM/100 mL PREMIX 1 G/100 ML BAG IV PRN (20:57)
[2022-08-15] MEDS ORDERED: K-RIDER 10 MEQ/NS 100 ML 10 MEQ/100 ML BAG IV PRN (20:57)
[2022-08-16] MEDS: TORADOL 30 MG VIAL IVP SCH ×3 (00:48→18:54)
[2022-08-16] MEDS: FLAGYL IV PREMIX 500 MG BAG 500 MG/100 ML BAG IV SCH ×3 (05:02→21:55)
[2022-08-16] MEDS: NS 1,000 ML IV 1,000 ML IV SCH ×3 (05:02→18:53)
[2022-08-16 05:30] LABS: BASOPHILS % (AUTO) 0.7 % (0.2-1.0); EOSINOPHILS # (AUTO) 0.1 x10^3/uL (0.0-0.2); EOSINOPHILS % (AUTO) 2.2 % (0.9-2.9); HEMATOCRIT 43.9 % (42.0-54.0); HEMOGLOBIN 15.4 g/dL (13.5-18.0); LYMPHOCYTES % (AUTO) 24.4 % (21.0-51.0); MEAN CORPUSCULAR HEMOGLOBIN 31.6 pg (27.0-34.0); MEAN CORPUSCULAR VOLUME 90.3 fL (80.0-100.0); MEAN PLATELET VOLUME 11.1 fL (7.4-11.0); MONOCYTES # (AUTO) 0.8 x10^3/uL (0.3-0.8); MONOCYTES % (AUTO) 18.5 % (0.0-13.0); NEUTROPHILS # (AUTO) 2.2 x10^3/uL (2.2-4.8); NEUTROPHILS % (AUTO) 54.2 % (42.0-75.0); PLATELET COUNT 138 X10^3/uL (150.0-450.0); RED BLOOD COUNT 4.86 X10^6/uL (4.7-6.0); RED CELL DISTRIBUTION WIDTH 12.8 % (11.6-16.5); WHITE BLOOD COUNT 4.2 X10^3/uL (3.6-10.0)
[2022-08-16 05:46] LABS: ALANINE AMINOTRANSFERASE 17 Units/L (12-78); ALBUMIN 2.9 g/dL (3.4-5.0); ALKALINE PHOSPHATASE 59 Units/L (46-116); ASPARTATE AMINO TRANSFERASE 11 Units/L (15-37); BLOOD UREA NITROGEN 13 mg/dL (7-18); CALCIUM 7.8 mg/dL (8.5-10.1); CARBON DIOXIDE 28.4 mmol/L (21-32); CHLORIDE 102 mmol/L (98-107); COR CA(FOR HYPOALB) 8.7 mg/dL (8.5-10.1); COR NA(FOR HYPERGLY) 137 mmol/L (136-145); CREATININE 1.04 mg/dL (0.70-1.30); GLUCOSE 112 mg/dL (65-99); POTASSIUM 3.8 mmol/L (3.5-5.1); SODIUM 137 mmol/L (136-145); eGFR NON BLACK RACES > 60 (>60)
[2022-08-16] MEDS: PROTONIX INJ 40 MG VIAL IVP SCH ×2 (09:36→21:55)
[2022-08-16] MEDS: PEPCID 20 MG VIAL 20 MG in NS 50 ML IV 50 ML IV SCH ×2 (09:36→21:55)
--- NOTE | 2022-08-16 09:39 | DR.PROGNOT ---
HOSPITAL PROGRESS NOTE Progress Note for Day of: Progress Note Date: 08/16/22 Chief Complaint Chief Complaint: denies abdominal pain . having few small BMs . no naqusea or vomiting . C Dif was negative . KUB still showing dilated small bowel . normal WBC Past Medical Family Social History Past Med/Fam/Surg Hx: No changes since H&P Allergies: Allergies No Known Drug Allergies Allergy (Unknown, Verified 08/14/22 21:59) latex Adverse Reaction (Mild, Verified 08/14/22 21:58) RASH Review Of Systems ROS: No change since H&P Vital Signs Vital Signs: Temperature 98.0 F Temperature 97.9 F Pulse Rate [Right Brachial] 63 Pulse Rate [Left] 78 Pulse Rate [Left] 78 Respiratory Rate 18 Respiratory Rate 20 Blood Pressure [Right Arm] 139/76 Blood Pressure [Left Arm] 132/72 Blood Pressure [Left Arm] 141/84 O2 Sat by Pulse Oximetry 100 O2 Sat by Pulse Oximetry 98 Physical Exam Oriented: Normal Eyes: Normal Ear: Normal Nose: Normal Throat: Normal Respiratory: Normal Cardiovascular: Normal : Normal GI:Auscultation: Decreased GI:Palpation: Normal GI: Tenderness: Diffuse and Mild (with hypoactive BS .) Skin: Normal Musculoskeletal: Normal Psychiatric: Normal Mood Description: Calm Affect: Normal Speech Pattern: Clear and Appropriate Laboratory and Diagnostics Result Diagrams: 08/16/22 04:50 08/16/22 04:50 Labs: 08/13/22 18:10 Urine,Clean Catch Urine Culture - Final Laboratory WBC 4.2 X10^3/uL (3.6-10.0) 08/16/22 04:50 RBC 4.86 X10^6/uL (4.7-6.0) 08/16/22 04:50 Hgb 15.4 g/dL (13.5-18.0) 08/16/22 04:50 Hct 43.9 % (42.0-54.0) 08/16/22 04:50 MCV 90.3 fL (80.0-100.0) 08/16/22 04:50 MCH 31.6 pg (27.0-34.0) 08/16/22 04:50 MCHC 35.0 g/dL (33.0-35.0) 08/16/22 04:50 RDW 12.8 % (11.6-16.5) 08/16/22 04:50 Plt Count 138 X10^3/uL (150.0-450.0) L 08/16/22 04:50 MPV 11.1 fL (7.4-11.0) H 08/16/22 04:50 Neut % (Auto) 54.2 % (42.0-75.0) 08/16/22 04:50 Lymph % (Auto) 24.4 % (21.0-51.0) 08/16/22 04:50 [place] % (Auto) 18.5 % (0.0-13.0) H 08/16/22 04:50 Eos % (Auto) 2.2 % (0.9-2.9) 08/16/22 04:50 Baso % (Auto) 0.7 % (0.2-1.0) 08/16/22 04:50 Neut # (Auto) 2.2 x10^3/uL (2.2-4.8) 08/16/22 04:50 Lymph # (Auto) 1.0 X10^3/uL (1.3-2.9) L 08/16/22 04:50 [place] # (Auto) 0.8 x10^3/uL (0.3-0.8) 08/16/22 04:50 Eos # (Auto) 0.1 x10^3/uL (0.0-0.2) 08/16/22 04:50 Baso # (Auto) 0.0 X10^3/uL (0.0-0.1) 08/16/22 04:50 Absolute Nucleated RBC 0.1 /100WBC 08/16/22 04:50 Sodium 137 mmol/L (136-145) 08/16/22 04:50 Corrected Sodium 137 mmol/L (136-145) 08/16/22 04:50 Potassium 3.8 mmol/L (3.5-5.1) 08/16/22 04:50 Chloride 102 mmol/L (98-107) 08/16/22 04:50 Carbon Dioxide 28.4 mmol/L (21-32) 08/16/22 04:50 BUN 13 mg/dL (7-18) 08/16/22 04:50 Creatinine 1.04 mg/dL (0.70-1.30) 08/16/22 04:50 Est GFR (MDRD) Af Amer > 60 (>60) 08/16/22 04:50 Est GFR (MDRD) Non-Af > 60 (>60) 08/16/22 04:50 Glucose 112 mg/dL (65-99) H 08/16/22 04:50 Lactic Acid 1.1 mmol/L (0.4-2.0) 08/15/22 09:20 Calcium 7.8 mg/dL (8.5-10.1) L 08/16/22 04:50 Corrected Calcium 8.7 mg/dL (8.5-10.1) 08/16/22 04:50 Magnesium 2.0 mg/dL (2.0-2.9) 08/16/22 04:50 Total Bilirubin 0.40 mg/dL (0.2-1.0) 08/16/22 04:50 AST 11 Units/L (15-37) L 08/16/22 04:50 ALT 17 Units/L (12-78) 08/16/22 04:50 Alkaline Phosphatase 59 Units/L (46-116) 08/16/22 04:50 Total Protein 6.0 g/dL (6.4-8.2) L 08/16/22 04:50 Albumin 2.9 g/dL (3.4-5.0) L 08/16/22 04:50 Globulin 3.1 g/dL (2.5-4.5) 08/16/22 04:50 Albumin/Globulin Ratio 0.9 Ratio (1.1-2.1) L 08/16/22 04:50 Amylase 47 Units/L (25-115) 08/13/22 16:12 Lipase 186 Units/L (73-393) 08/13/22 16:12 Specimen Type Clean catch urine 08/13/22 18:10 Urine Color Dark yellow (YELLOW) 08/13/22 18:10 Urine Appearance Clear (CLEAR) 08/13/22 18:10 Urine pH 6.0 (5.0 - 8.0) 08/13/22 18:10 Ur Specific [place] 1.020 (1.000-1.030) 08/13/22 18:10 Urine Protein 2+ (NEGATIVE) 08/13/22 18:10 Urine Glucose (UA) Negative (NEGATIVE) 08/13/22 18:10 Urine Ketones 2+ (NEGATIVE) 08/13/22 18:10 Urine Blood 3+ (NEGATIVE) 08/13/22 18:10 Urine Nitrite Negative (NEGATIVE) 08/13/22 18:10 Urine Bilirubin Negative (NEGATIVE) 08/13/22 18:10 Urine Urobilinogen Normal (NORMAL) 08/13/22 18:10 Ur Leukocyte Esterase Negative (NEGATIVE) 08/13/22 18:10 Urine RBC 10-20 /HPF (0-3) A 08/13/22 18:10 Urine WBC 0-2 /HPF (0-5) 08/13/22 18:10 Ur Squamous Epith Cells Few /HPF (NEGATIVE) 08/13/22 18:10 Urine Bacteria Trace /HPF (NEGATIVE) 08/13/22 18:10 Urine Mucus Moderate /HPF (NEGATIVE) 08/13/22 18:10 Ur Culture Indicated? Yes/culture set up 08/13/22 18:10 Stl C. diff Tox B Gene Negative (NEGATIVE) 08/15/22 13:00 Stl C. diff [id number] Presumptive negative (NEGATIVE) 08/15/22 13:00 Assessment and Plan 1: improving small bowel ileus . to advance diet . to follow in two weeks and arrange for future GI endoscopy . Problem Patient Problems: Patient Problems (Updated 08/15/22 @ 14:41 by Zhang [place]) Small bowel obstruction (Acute) K56.609 Abdominal pain (Acute) R10.9 Nausea and vomiting (Acute) R11.2 HTN (hypertension) (Chronic) I10 Hyperlipemia (Chronic) E78.5
[2022-08-16] MEDS: LEVAQUIN PREMIX IV 750 MG 750 MG/150 ML BAG IV SCH (10:30)
--- NOTE | 2022-08-16 20:18 | RAD ---
HISTORYabd pain n/v dehydrationSTUDYKUBCOMPARISONMay 2022TECHNIQUEAP supine projection, 3 imagesFINDINGSEnteric contrast in nondistended large bowel.Multiple moderately distended gas-filled loops of small bowel in the central abdomen.No gross free air.No abnormal calcifications.No acute osseous abnormality.IMPRESSIONFindings are concerning for a mechanical small bowel obstruction. No significant changes.Electronically signed by: Kemar Abarca (August 16, 2022 20:16:54)
[2022-08-17] MEDS: TORADOL 30 MG VIAL IVP SCH (00:07)
[2022-08-17] MEDS: NS 1,000 ML IV 1,000 ML IV SCH ×2 (01:30→05:14)
[2022-08-17] MEDS: FLAGYL IV PREMIX 500 MG BAG 500 MG/100 ML BAG IV SCH (05:13)
[2022-08-17 05:17] LABS: BASOPHILS % (AUTO) 0.7 % (0.2-1.0); EOSINOPHILS # (AUTO) 0.1 x10^3/uL (0.0-0.2); EOSINOPHILS % (AUTO) 2.6 % (0.9-2.9); HEMATOCRIT 42.6 % (42.0-54.0); HEMOGLOBIN 14.8 g/dL (13.5-18.0); LYMPHOCYTES # (AUTO) 1.2 X10^3/uL (1.3-2.9); MEAN CORPUSCULAR HEMOGLOBIN 31.5 pg (27.0-34.0); MEAN CORPUSCULAR HGB CONC 34.9 g/dL (33.0-35.0); MEAN CORPUSCULAR VOLUME 90.5 fL (80.0-100.0); MEAN PLATELET VOLUME 10.9 fL (7.4-11.0); MONOCYTES # (AUTO) 0.6 x10^3/uL (0.3-0.8); MONOCYTES % (AUTO) 12.4 % (0.0-13.0); NEUTROPHILS # (AUTO) 2.8 x10^3/uL (2.2-4.8); NEUTROPHILS % (AUTO) 58.3 % (42.0-75.0); PLATELET COUNT 142 X10^3/uL (150.0-450.0); RED BLOOD COUNT 4.71 X10^6/uL (4.7-6.0); WHITE BLOOD COUNT 4.7 X10^3/uL (3.6-10.0)
[2022-08-17 05:29] LABS: ALANINE AMINOTRANSFERASE 17 Units/L (12-78); ALBUMIN 2.8 g/dL (3.4-5.0); ALKALINE PHOSPHATASE 54 Units/L (46-116); ASPARTATE AMINO TRANSFERASE 9 Units/L (15-37); BLOOD UREA NITROGEN 10 mg/dL (7-18); CALCIUM 7.8 mg/dL (8.5-10.1); CARBON DIOXIDE 31.5 mmol/L (21-32); CHLORIDE 104 mmol/L (98-107); COR CA(FOR HYPOALB) 8.8 mg/dL (8.5-10.1); COR NA(FOR HYPERGLY) 140 mmol/L (136-145); CREATININE 1.15 mg/dL (0.70-1.30); GLUCOSE 112 mg/dL (65-99); POTASSIUM 3.9 mmol/L (3.5-5.1); SODIUM 140 mmol/L (136-145); TOTAL PROTEIN 5.9 g/dL (6.4-8.2); eGFR NON BLACK RACES > 60 (>60)
[2022-08-17 07:30] VITALS: BP 136/79; PULSE 57; TEMP 98.4; O2SAT 99
--- NOTE | 2022-08-17 08:11 | RAD ---
HISTORYNausea and vomiting. Abdominal pain. WdkdamekmwlISLCWOLMYMEOIEDBRL60/27/2023, 08/15/2022, 08/14/2022 and 08/13/2022.FINDINGSThere are multiple distended loops of small bowel throughout the abdomen similar to the comparison studies. Residual contrast is noted within the nondistended colon to the level of the rectum. The bony structures are grossly unchanged.IMPRESSIONUnchanged exam from recent comparisons suggesting an ileus and/or small bowel obstruction.Electronically signed by: BIBIANA SWAIN (August 17, 2022 08:09:13)
== END 2022-08-17 09:35 | disposition home or self-care (01) ==
LOC: MED/SURG
PROVIDERS: ADMIT Internal Medicine; ATTEND Internal Medicine
DX: K56.690 Other partial intestinal obstruction; E87.6 Hypokalemia; I10 Essential (primary) hypertension; E86.0 Dehydration; R11.2 Nausea with vomiting, unspecified; R10.84 Generalized abdominal pain; R31.9 Hematuria, unspecified